=== PATIENT | male | born 1995 | race Two or more races ===

== ENCOUNTER 2024-05-17 08:50 | Emergency (ER) | payer SELFPAY ==
[2024-05-17 08:51] VITALS: BMI 19.2
[2024-05-17 09:42] VITALS: BP 112/66; PULSE 78; RESP 16; TEMP 36.7; O2SAT 99; BMI 25.1
--- NOTE | 2024-05-17 09:55 | XR_ITS ---
Examination: Lumbar spine 3 views Technique one AP lateral coned lateral lower lumbar spine 3 views Exam date and time: May 17, 2024 1004 hours INDICATIONS: Onset lower back pain beginning 3 months ago. FINDINGS: Straightening normal lumbar lordosis No lumbar fracture Mild lumbar spondylosis Mild disc narrowing L5-S1 IMPRESSION: Mild disc narrowing L5-S1
[2024-05-17] MEDS: HYDROcodone/APAP 5/325 TABLET 1 TAB PO (10:29)
[2024-05-17] MEDS: predniSONE 20 MG TABLET 60 MG PO (10:29)
[2024-05-17] MEDS: CYCLObenzaPRINE 5 MG TABLET 10 MG PO (10:30)
--- NOTE | 2024-05-17 11:33 | PD.EDANKLE ---
Lower Extremity Injury RME/HPI General Chief Complaint: Ankle/Foot Injury Stated Complaint: LEFT FOOT PAIN Time Seen by Provider: 05/17/24 09:33 Source: patient Arrival date/time: 05/17/24 08:50 This is a 28-year-old male presents scented to the emergency department with complaints of lumbar back pain radiating to his left leg. Patient denies any other associated symptoms or aggravating factors. No modifying factors, no radiation, no migration. Patient did not attempt any interventions or take any OTC medications prior to ED visit. Does report several episodes of back pain has never seen PCP outpatient. Requesting x-rays. Related Data Previous Rx's ?Medication ?Instructions ?Recorded cyclobenzaprine 5 mg tablet 5 mg PO TID PRN muscle spasm #14 05/17/24 tabs gabapentin 100 mg capsule 100 mg PO TID PRN nerve pain #20 05/17/24 caps ibuprofen 800 mg tablet (IBU) 800 mg PO Q8H #20 tabs 05/17/24 lidocaine 5 % topical patch 1 patch topical Q24H #15 ea 05/17/24 Allergies Allergy/AdvReac Type Severity Reaction Status Date / Time No Known Allergies Allergy Verified 05/17/24 08:54 Review of Systems Review of Systems Systems Reviewed: All systems reviewed, normal except as documented Narrative Review of Systems: Gen: No fever, no chills, no weight loss EYES: No discharge, no visual changes, no pain HEENT: No ear pain, no congestion, no sore throat PULM: No shortness of breath, no cough, no congestion CV: No chest pain, no dyspnea on exertion, no palpitations GI: No nausea, no vomiting, no diarrhea, no pain, no constipation : No frequency, no urgency,? no dysuria Musc/skel: No joint pain, + back pain Skin: No rash? Psyc: No hallucinations, no depression Heme/Lymph: No easy bleeding or bruising tendencies Neuro: No weakness, no headache ED Exam Narrative Physical exam: General: Sittiing in Exam table in no acute distress, answering questions appropriately HENT: normocephalic, atraumatic, EOMI, PERRLA, moist mucous membranes Chest: chest wall is nontender Cardiac: regular rate and rhythm, normal S1 and S2, no murmurs, rubs, or gallops, capillary refill ?2 seconds Pulmonary: clear to auscultation bilaterally, no wheezing, crackles, or rhonchi Abdominal: active bowel sounds, soft, nontender, nondistended Neuro: A&OX3, CN II-XII intact, sensation grossly intact bilaterally in UE and LE. Skin: no rashes, no ecchymosis Ext: no lower extremity edema, + paraspinal tenderness left tenderness to posterior leg. No calf pain negative Homans' sign Course Quality Measures none Orders Category Date Time Status XR knee LT 3V Stat Exams 05/17/24 12:05 Completed XR lumbar spine 2-3V Stat Exams 05/17/24 09:55 Completed CYCLObenzaPRINE [Flexeril] Med 05/17/24 09:55 Discontinued 10 mg PO X1 ONE HYDROcodone*/APAP 5/325 [[place] 5/325] Med 05/17/24 09:55 Discontinued 1 tab PO X1 ONE predniSONE Med 05/17/24 09:55 Discontinued 60 mg PO X1 ONE Vital Signs Vital signs: Vital Signs Temperature 98.0 F 05/17/24 09:42 Pulse Rate 78 05/17/24 09:42 Respiratory Rate 16 05/17/24 09:42 Blood Pressure 112/66 05/17/24 09:42 Pulse Oximetry (%) 99 05/17/24 09:42 Oxygen Delivery Method Room Air 05/17/24 09:42 Extremity Injury, Lower MDM Narrative MDM Narrative:: 28-year-old healthy male here to what appears to be experiencing back pain with radiculopathy .no fever, weakness, abdominal pain, saddle anesthesia, bowel/bladder incontinence noted. No hx of IVDA. Gait and sensation intact. No signs of emergent pathology at this time. Low suspicion for emergent etiology such as epidural abscess or spinal cord compression/cauda equina. Exam is consistent with musculoskeletal back pain. Gave meds while in ED. Pain went from 10 to 5 after meds. Vitals improved as well. Likely chronic back pain Patient data [place] [facility] [place] Clinical information provided by:: patient Social determinants that could affect healthcare access:: none Patient has the following chronic illnesses:: none How is presenting disease/condition affected by chronic disease/condition?: no chronic disease Evaluation data The following diagnostics were reviewed and interpreted by me:: other (specify) Lab and/or radiology exams considered but not ordered:: none Interpretation Summary: Examination: Lumbar spine 3 views Technique one AP lateral coned lateral lower lumbar spine 3 views Exam date and time: May 17, 2024 1004 hours INDICATIONS: Onset lower back pain beginning 3 months ago. FINDINGS: Straightening normal lumbar lordosis No lumbar fracture Mild lumbar spondylosis Mild disc narrowing L5-S1 IMPRESSION: Mild disc narrowing L5-S1 Medications / Prescriptions Medications or Prescriptions considered but not ordered:: none Medication administrations:: Medication Administration History Discontinued Medications Hydrocodone Bitart/Acetaminophen (Hydrocodone/Apap 5/325 Tablet) 1 tab PO X1 ONE Stop: 05/17/24 09:56 Last Admin: 05/17/24 10:29 Dose: 1 tab Documented By: ED Cyclobenzaprine HCl (Cyclobenzaprine 5 Mg Tablet) 10 mg PO X1 ONE Stop: 05/17/24 09:56 Last Admin: 05/17/24 10:30 Dose: 10 mg Documented By: ED Prednisone (Prednisone 20 Mg Tablet) 60 mg PO X1 ONE Stop: 05/17/24 09:56 Last Admin: 05/17/24 10:29 Dose: 60 mg Documented By: ED All medications administered and effective Consultations Consultation(s) initiated? (list below): No Diagnosis Extremity Injury, Lower Differential Diagnosis: ankle sprain and strain, acute internal derangement of knee and other (Sciatica, lumbar degenerative disc disease, back strain.) Most likely diagnosis given after review of the tests above:: Lumbar Radiculopathy Admission Indicated Admission indicated?: not indicated Admission Request Was there a request for admission?: No Disposition Plan Disposition Plan: Discharge Discharge Attestation Discharge Attestation: The patient and all family members were given an opportunity to ask questions and understood the discharge instructions. Discharge instructions specifically effects, indications for sooner follow up or return to the emergency department, and the expected course of current diagnosis. Patient condition: Stable Discharge Plan Plan Patient Disposition: HOME (Self Care) Patient condition on transfer: Stable Prescriptions/Referrals Prescriptions/Med Rec: New gabapentin 100 mg capsule 100 mg PO TID PRN (Reason: nerve pain) Qty: 20 0RF ibuprofen [IBU] 800 mg tablet 800 mg PO Q8H Qty: 20 0RF lidocaine 5 % adhesive patch,medicated 1 patch topical Q24H Qty: 15 0RF Rx Instructions: leave on most painful area for up to 12 hrs cyclobenzaprine 5 mg tablet 5 mg PO TID PRN (Reason: muscle spasm) Qty: 14 0RF Problem List Clinical Impression: Lumbar radiculopathy Patient/Caregiver Discharge Instructions Discharge Activity: activity as tolerated Education Materials: ED Sciatica Additional Instructions: Please follow-up with your primary doctor clinic on Monday. -You will need to rest and have activities modification avoid heavy lifting twisting motions or prolonged sitting or standing. -Will need to follow-up with your doctor in 2 to 3 days for follow-up care Might need physical therapy Might need referral for MRI outpatient, Diagnostic imaging (like MRI) might be used to assess the extent of the bulging disc, particularly if symptoms worsen or persist. -Medications sent please use as directed Can include ibuprofen, muscle relaxant Lifestyle modifications weight reduction Return to the emergency department this any worsening symptoms change in condition. Print Language: Kinyarwanda Stand Alone Forms: Cheli Award Info., Patient Portal Info Letter PA/SINGH Supervising Physician HARJIT/SINGH Supervising Physician: Dr Bradley
--- NOTE | 2024-05-17 12:05 | XR_ITS ---
Examination: Knee, left , 3 views Technique: Knee AP, lateral, oblique 3 views Date and time of exam: May 17, 2024 1210 hours INDICATIONS: Left knee pain today FINDINGS: No fracture or dislocation No arthritic change No opaque foreign body IMPRESSION: No fracture or dislocation
== END 2024-05-17 13:21 | disposition home or self-care (01) ==
LOC: SERX 12:14
PROVIDERS: Emergency Provider Emergency Medicine
DX: M54.16 Radiculopathy, lumbar region (principal)
CPT/HCPCS: 72100; 73562; 99283; J7512; A9270